=== PATIENT | female | born 1955 | race Caucasian/White ===

== ENCOUNTER → 2018-02-18 | Outpatient (CLI) | payer BC | LOC: COL.RAD 09:25 | DX: K80.20 Calculus of gallbladder without cholecystitis without obstruction (principal) ==

== ENCOUNTER → 2018-04-16 | Outpatient (CLI) | payer BC | LOC: MC.RAD 10:23 | DX: Z12.31 Encounter for screening mammogram for malignant neoplasm of breast (principal) ==

== ENCOUNTER → 2018-04-22 | Outpatient (CLI) | payer BC | LOC: MC.RAD 12:48 | DX: R92.8 Other abnormal and inconclusive findings on diagnostic imaging of breast (principal) | CPT/HCPCS: G0279 ==